=== PATIENT | male | born 1940 | race Caucasian/White ===

== ENCOUNTER → 2021-02-19 09:19 | Outpatient (REF) | payer MEDICARE, OTHER, SELFPAY ==
--- NOTE | 2021-02-19 09:30 | CA_ITS ---
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 Normal LV systolic function with impaired relaxation filling pattern 2. Mild mitral regurgitation 3. Trace aortic regurgitation 4. Normal RV systolic pressure 5. No pericardial effusion Findings Left Ventricle Normal left ventricular size and systolic function. There is mildly increased left ventricular wall thickness. The visually estimated ejection fraction is between 60-65%. Spectral Doppler is indicative of an impaired relaxation filling pattern. E/E prime ratio is between 8 and 15 consistent with indeterminate filling pressures. Right Ventricle Normal right ventricular cavity size and systolic function. Atria The left atrium is normal in size. There is no evidence of interatrial shunt. The right atrium is normal in size. Aortic Valve There is mild calcification of the aortic valve. There is moderate thickening of the aortic valve. There is no aortic valve stenosis. There is trace (trivial) aortic valve regurgitation. Mitral Valve There is mild anterior and severe posterior mitral leaflet thickening. There is moderate mitral annular calcification. There is mild mitral valve regurgitation. There is no mitral valve stenosis. Pulmonic Valve The pulmonic valve was not well visualized. Tricuspid Valve Likely normal tricuspid valve structure and function. There is mild tricuspid valve regurgitation. The right ventricular systolic pressure is normal. The right ventricular systolic pressure is 27 mmHg. Normal right atrial pressure. There is no evidence of pulmonary hypertension. Great Vessels All visible segments of the aorta are normal in size. The pulmonary artery was not well visualized. Venous The inferior vena cava is normal in size and collapses greater than 50% with inspiration. Pericardium/Pleural There is no evidence of pericardial effusion. Prior Study Comparison No significant change compared to prior study dated: 02/25/2019. Measurements 2D Linear Measurements IVSd: 1.23 0.6-0.9/0.6-1.0 cm LVIDd: 4.05 3.9-5.3/4.2-5.9 cm LVIDd Index: 2.11 2.4-3.2/2.2-3.1 cm/m2 LVIDs: 2.37 2.0-3.6 cm LVPWd: 1.30 0.7-1.1 cm Ao Root: 2.90 2.1-3.5 cm LA Diam: 3.60 2.7-3.8/3.0-4.0 cm LAIDs Index: 1.88 1.5-2.3 cm/m2 LV Mass: 227.20 67-162/88-224 g LV Mass Index: 118.33 43-95/49-115 g/m2 LVOT Diam: 2.20 3.0+(-)1.3 cm 2D Systolic Function EF 4C: 56.70 >55% Mitral Valve MV Pk E: 0.92 MV PK A: 0.88 MV Decel Time: 254.00 E/A: 1.00 E'Lateral: 7.94 E'Medial: 7.94 E/E' Med: 11.50 E/E' Lat: 11.50 PHT: 75.00 MVA PHT: 2.[address] [place]: 3.67 Aortic Valve AoV Pk Jose Alfredo: 1.47 AoV Pk Grad: 9.00 LVOT LVOT Pk Jose Alfredo: 0.85 LVOT Mn Jose Alfredo: 0.53 LVOT VTI: 0.21 LVOT Pk Grad: 3.00 LVOT Mn Grad: 1.00 LVOT Diam: 2.20 LVOT Area: 3.80 Diastolic Function MV Pk E: 0.92 MV Pk A: 0.88 E/A: 1.00 E'Medial: 7.94 E/E' Med: 11.50 E' Laterial: 7.94 E/E' Lat: 11.50 Tricuspid Valve TR Pk Jose Alfredo: 2.44 TR Pk Grad: 24.00 RA Press: 3.00 RVSP: 27.00 Great Vessels Aorta Ao Root-2D: 2.90 2.0-3.7 cm Ao Asc: 3.20 2.1-3.4 cm Updated in Other Vendor System with Status of Final Esequiel Duckworth MD electronically signed on 02/19/2021 6:16:31 PM with status of Final
== END ==
LOC: HO.CARD 09:19
PROVIDERS: PCP Internal Medicine; Visit Provider Internal Medicine Cardiovascular Disease
DX: I34.0 Nonrheumatic mitral (valve) insufficiency (principal)
CPT/HCPCS: 93306

== ENCOUNTER → 2021-04-10 09:19 | Outpatient (BNVA) | payer MEDICARE, OTHER, SELFPAY | PROVIDERS: PCP Internal Medicine; Referring Provider Internal Medicine; Visit Provider Internal Medicine Cardiovascular Disease | DX: I34.0 Nonrheumatic mitral (valve) insufficiency (principal); R06.02 Shortness of breath | CPT/HCPCS: 93005; 99212 ==

== ENCOUNTER 2024-01-13 23:59 | Outpatient (BNV) | payer MEDICARE, OTHER, SELFPAY | END 2024-01-27 23:59 | PROVIDERS: PCP Internal Medicine; Visit Provider Internal Medicine | DX: I48.91 Unspecified atrial fibrillation (principal) | CPT/HCPCS: 99223 ==